=== PATIENT | female | born 1970 | race Caucasian/White ===

== ENCOUNTER 2019-05-26 13:27 | Emergency (ER) | payer OTHER ==
[~2019-05-26] VITALS: Ht 160 cm; Wt 93.4 kg
[2019-05-26 13:52] VITALS: Ht 160 cm; Wt 93.4 kg
[2019-05-26 14:46] LABS: BASOPHIL % 0.8 % (0-2); PLATELET COUNT 323 x10^3mcL (130-400); RED CELL DISTRIBUTION WIDTH 13.9 % (11.5-14.5)
[2019-05-26 14:48] LABS: CALCIUM 8.7 mg/dL (8.5-10.1); CHLORIDE SERUM 106 mmol/L (98-107); CREATININE SERUM 0.7 mg/dL (0.6-1.0); GFR1 > 60 mL/min; GLUCOSE SERUM 78 mg/dL (74-106); POTASSIUM SERUM 4.3 mmol/L (3.5-5.1); SODIUM SERUM 142 mmol/L (136-145)
[2019-05-26 14:52] LABS: ALBUMIN 3.9 g/dL (3.4-5.0); ALKALINE PHOSPHATASE 105 U/L (46-116); ALT/SGPT 68 U/L (14-59); AST/SGOT 40 U/L (15-37); BILIRUBIN TOTAL 0.6 mg/dL (0.20-1.00); LIPASE 82 IU/L (73-393)
[2019-05-26 14:53] LABS: TOTAL PROTEIN, SERUM 8.4 g/dL (6.4-8.2)
[2019-05-26 16:21] VITALS: BP 115/62
== END 2019-05-26 16:21 | disposition home or self-care (01) ==
LOC: ED 13:27
PROVIDERS: Emergency Medicine
DX: K29.70 Gastritis, unspecified, without bleeding (principal); R94.5 Abnormal results of liver function studies
CPT/HCPCS: 36415; Q0162